=== PATIENT | female | born 1990 | race African-American/Black ===

== ENCOUNTER 2017-06-18 22:35 | Inpatient (IN) | payer OTHER ==
[~2017-06-18] VITALS: Ht 162.6 cm; Wt 96.4 kg
[~2017-06-18 22:35] MED LIST: EXPECTA PRENAT1 EACH PO; IBUPROFEN800 MG PO; ZOLOFT25 MG PO
[2017-06-18 22:51] VITALS: BP 135/94
[2017-06-18 22:59] VITALS: BP 136/80
[2017-06-19] VITALS (66 sets, daily range): BP systolic 95–145; BP diastolic 50–93
[2017-06-19 02:02] LABS: BASOPHIL (%) 0.4 % (0-1); BASOPHIL COUNT 0.1 K/uL (0-0.1); EOSINOPHIL (%) 2.4 % (0-5); EOSINOPHIL COUNT 0.3 K/uL (0-0.3); HEMOGLOBIN 10.9 G/DL (11.9-15.5); IMMATURE GRANULOCYTE (%) 0.7 % (0.0-0.7); LYMPHOCYTE (%) 16.6 % (15-42); MCH 24.9 PG (29.0-34.0); MCHC 32.1 G/DL (30.0-36.0); MCV 77.6 FL (83-99); MONOCYTE (%) 7.8 % (3-12); MONOCYTE COUNT 0.9 K/uL (0-0.8); NEUTROPHIL (%) 72.1 % (45-76); NEUTROPHIL COUNT 8.6 K/uL (1.8-6.4); PLATELET COUNT 264 K/uL (156-360); RBC DIS.WIDTH-CV 16.6 % (11.8-14.6); RBC DIS.WIDTH-SD 46.3 % (39-53); RED BLOOD COUNT 4.38 M/uL (3.80-5.20); WHITE BLOOD COUNT 11.9 K/uL (4.1-10.2)
[2017-06-19 02:03] LABS: APPEARANCE CLOUDY ((CLEAR)); BILIRUBIN NEGATIVE; BLOOD MODERATE; COLOR YELLOW ((YELLOW)); GLUCOSE (STRIP) NEGATIVE; KETONES NEGATIVE; LEUKOCYTES LARGE; NITRITE NEGATIVE; PROTEIN (STRIP) 30
[2017-06-19 02:09] LABS: BACTERIA RARE /HPF; EPITHELIAL CELLS 2+ /HPF; MUCUS TRACE /LPF; UCUL ADDED? YES; WHITE BLOOD CELLS 40-50 /HPF (0-5)
[2017-06-19 02:11] LABS: AMPHETAMINE NEGATIVE (500 ng/mL); BARBITURATES NEGATIVE (200 ng/mL); BENZODIAZEPINES NEGATIVE (150 ng/mL); BUPRENORPHINE NEGATIVE (10 ng/mL); COCAINE NEGATIVE (150 ng/mL); METHADONE NEGATIVE (200 ng/mL); METHAMPHETAMINE NEGATIVE (500 ng/mL); OPIATES (MORPHINE) NEGATIVE (100 ng/mL); OXYCODONE NEGATIVE (100 ng/mL); PHENCYCLIDINE NEGATIVE (25 ng/mL); PROPOXYPHENE NEGATIVE (300 ng/mL); THC CANNABINOIDS NEGATIVE (50 ng/mL); TRICYCLIC ANTIDEPRESSANTS NEGATIVE (300 ng/mL)
[2017-06-19 02:13] LABS: ALBUMIN 3.6 g/dL (3.2-4.8)
[2017-06-19 02:14] LABS: CHLORIDE 105 mEq/L (99-109); SODIUM 138 mEq/L (136-147)
[2017-06-19 02:16] LABS: GLUCOSE 88 mg/dL (70-99); TOTAL PROTEIN 7.1 g/dL (6.4-8.3)
[2017-06-19 02:18] LABS: TOTAL BILIRUBIN 0.5 mg/dL (0.0-1.0)
[2017-06-19 02:20] LABS: ALKALINE PHOSPHATASE 108 IU/L (3-129); CREATININE 0.7 mg/dL (0.6-1.3); GFR ESTIMATE (CALCULATED) > 59 mL/min/
[2017-06-19 02:21] LABS: UREA NITROGEN (BUN) 8 mg/dL (9-23)
[2017-06-19 02:22] LABS: AST (GOT) 12 IU/L (2-34)
[2017-06-19 02:23] LABS: ALT (GPT) 7 IU/L (3-49); URIC ACID 4.2 mg/dL (3.1-9.2)
[2017-06-19 05:22] LABS: LACTATE DEHYDROGENASE 184 IU/L (20-246)
[2017-06-19 05:22] LABS: UR CREATININE CONCENTRATION 131.2 MG/DL
[2017-06-20 04:19] VITALS: BP 132/77
[2017-06-20 05:52] LABS: BASOPHIL (%) 0.4 % (0-1); BASOPHIL COUNT 0.1 K/uL (0-0.1); EOSINOPHIL (%) 0.8 % (0-5); EOSINOPHIL COUNT 0.1 K/uL (0-0.3); HEMATOCRIT 30.7 % (36.0-46.0); HEMOGLOBIN 9.5 G/DL (11.9-15.5); IMMATURE GRANULOCYTE (%) 0.8 % (0.0-0.7); LYMPHOCYTE (%) 13.9 % (15-42); LYMPHOCYTE COUNT 2.3 K/uL (1.0-2.8); MCH 24.6 PG (29.0-34.0); MCHC 30.9 G/DL (30.0-36.0); MCV 79.5 FL (83-99); MONOCYTE (%) 8.3 % (3-12); MONOCYTE COUNT 1.4 K/uL (0-0.8); NEUTROPHIL (%) 75.8 % (45-76); NEUTROPHIL COUNT 12.8 K/uL (1.8-6.4); PLATELET COUNT 233 K/uL (156-360); RBC DIS.WIDTH-CV 17.1 % (11.8-14.6); RBC DIS.WIDTH-SD 48.1 % (39-53); RED BLOOD COUNT 3.86 M/uL (3.80-5.20); WHITE BLOOD COUNT 16.9 K/uL (4.1-10.2)
[2017-06-20 07:52] VITALS: BP 131/86
[2017-06-20 22:48] VITALS: BP 128/84
[2017-06-21] MEDS ORDERED: DOCUSATE SODIU100 MG PO (09:18)
[2017-06-21] MEDS ORDERED: IBUPROFEN800 MG PO (09:18)
[2017-06-21] MEDS ORDERED: FERROCITE324 MG PO (09:18)
== END 2017-06-21 12:40 | disposition home or self-care (01) | DRG 775 ==
LOC: LDRP-OP → 2WEST 22:36 → LDRP-OP 07-16 12:49
PROVIDERS: Advanced Practice Midwife
DX: O63.0 Prolonged first stage (of labor) (principal); O77.0 Labor and delivery complicated by meconium in amniotic fluid; O48.0 Post-term pregnancy; T85.690A Other mechanical complication of cranial or spinal infusion catheter, initial encounter; Y84.8 Other medical procedures as the cause of abnormal reaction of the patient, or of later complication, without mention of misadventure at the time of the procedure; O99.02 Anemia complicating childbirth; D50.9 Iron deficiency anemia, unspecified; O99.214 Obesity complicating childbirth; E66.9 Obesity, unspecified; Z68.34 Body mass index [BMI] 34.0-34.9, adult; O99.344 Other mental disorders complicating childbirth; F32.9 Major depressive disorder, single episode, unspecified; O99.52 Diseases of the respiratory system complicating childbirth; J45.909 Unspecified asthma, uncomplicated; Z3A.40 40 weeks gestation of pregnancy; Z37.0 Single live birth
CPT/HCPCS: 80053; 81003; 82570; 83615; 84156; 84550; 85025; 85384; 87086; C1755; G0378; J0595; J1050; J3010; J7120